=== PATIENT | male | born 1950 | race Caucasian/White ===

== ENCOUNTER 2025-01-28 09:55 | Day surgery (SDC) | payer OTHER ==
[~2025-01-28] VITALS: Ht 172.7 cm; Wt 121.9 kg
[~2025-01-28 09:55] MED LIST: Balanced Salt Epinephrine Irrigation Solution 500 mL IR SCH; Lidocaine HCl/Pf 1% 5 ML VIAL XX SCH; Moxifloxacin HCL 0.5 MG/0.1 ML 0.4MLSYR RIGHTEYE SCH; PHENYLEPHRINE\\TROPICAMIDE\\TETRACAINE OPHTHALMIC DILATING SOLN RIGHTEYE PRN; Povidone-Iodine 450 DROP/30 ML Solution ONE; Povidone-Iodine 450 DROP/30 ML Solution RIGHTEYE SCH; Tetracaine HCl/Pf 0.5% Opth Soln 4 ml ONE; Triamcinolone Inj Susp 40 MG / ML 1ML Vial INJ SCH; Triamcinolone Inj Susp 40 MG / ML 1ML Vial ONE
[2025-01-28] MEDS ORDERED: ARIPIPRAZOLE10 M4 PO (10:42)
[2025-01-28] MEDS ORDERED: Midazolam HCl 1MG / ML 2ML Vial ONE (11:35)
[2025-01-28 12:02] VITALS: BP 130/83
== END 2025-01-28 12:25 | disposition home or self-care (01) ==
LOC: ORSCSDS 09:55
PROVIDERS: Ophthalmology
PROC: 08RJ3JZ Replacement of Right Lens with Synthetic Substitute, Percutaneous Approach (ICD-10-PCS; principal; 2025-01-28 11:30)
DX: H25.813 Combined forms of age-related cataract, bilateral (principal); H52.201 Unspecified astigmatism, right eye; R06.02 Shortness of breath; Z87.891 Personal history of nicotine dependence; G47.33 Obstructive sleep apnea (adult) (pediatric); E66.9 Obesity, unspecified; Z68.41 Body mass index [BMI] 40.0-44.9, adult; Z79.899 Other long term (current) drug therapy
CPT/HCPCS: J2250; J3301; V2632

== ENCOUNTER 2025-02-04 09:40 | Day surgery (SDC) | payer OTHER ==
[~2025-02-04] VITALS: Ht 172.7 cm; Wt 121.0 kg
[~2025-02-04 09:40] MED LIST changes: +ARIPIPRAZOLE10 M4 PO; +Midazolam HCl 1MG / ML 2ML Vial ONE
[2025-02-04 11:15] VITALS: BP 129/75
== END 2025-02-04 11:28 | disposition home or self-care (01) ==
LOC: ORSCSDS 09:40
PROVIDERS: Ophthalmology
PROC: 08RK3JZ Replacement of Left Lens with Synthetic Substitute, Percutaneous Approach (ICD-10-PCS; principal; 2025-02-04 11:00)
DX: H25.812 Combined forms of age-related cataract, left eye (principal); Z96.1 Presence of intraocular lens; H52.202 Unspecified astigmatism, left eye; G47.33 Obstructive sleep apnea (adult) (pediatric); K21.9 Gastro-esophageal reflux disease without esophagitis; R06.02 Shortness of breath; E66.9 Obesity, unspecified; Z68.41 Body mass index [BMI] 40.0-44.9, adult; Z87.891 Personal history of nicotine dependence; Z79.899 Other long term (current) drug therapy
CPT/HCPCS: J2250; J3301; V2632